=== PATIENT | male | born 1965 | race Caucasian/White ===

== ENCOUNTER 2019-04-08 10:35 | Day surgery (SDC) | payer BC ==
[~2019-04-08] VITALS: Ht 177.8 cm; Wt 145.1 kg
[2019-04-08] MEDS ORDERED: fentaNYL CITRATE 100 MCG/2 ML VL ONE (13:02)
[2019-04-08] MEDS ORDERED: ANGIOMAX 250 MG VIAL IV ONE (13:02)
[2019-04-08] MEDS ORDERED: IODIXANOL 320MG/ML 100ML BTL IV ONE (13:03)
[2019-04-08] MEDS ORDERED: MIDAZOLAM HCL 1MG/1ML-2 ML VIAL ONE (13:03)
[2019-04-08] MEDS ORDERED: SODIUM CHL 0.9% 0 ML ONE (13:03)
[2019-04-08] MEDS ORDERED: LIDOCAINE 2%HCL (LOCAL ANESTH.) INJ 20ML MDV ONE ×3 (13:04→13:32)
[2019-04-08] MEDS ORDERED: IOHEXOL 350 MG/ML 100ML IJ ONE (13:04)
[2019-04-08] MEDS ORDERED: VERAPAMIL 2.5MG/ML INJ 2ML VIAL IV ONE (13:06)
[2019-04-08] MEDS ORDERED: HEPARIN SODIUM (PORCINE) 5000 UNITS/ML 1ML VIAL ONE (13:49)
== END 2019-04-08 15:45 | disposition home or self-care (01) ==
LOC: CATH 10:35
PROVIDERS: ATTEND Internal Medicine
DX: I25.810 Atherosclerosis of coronary artery bypass graft(s) without angina pectoris (principal); I25.2 Old myocardial infarction; E66.9 Obesity, unspecified; G47.30 Sleep apnea, unspecified; I50.9 Heart failure, unspecified; Z95.1 Presence of aortocoronary bypass graft; Z82.49 Family history of ischemic heart disease and other diseases of the circulatory system; Z90.49 Acquired absence of other specified parts of digestive tract; Z68.42 Body mass index [BMI] 45.0-49.9, adult
CPT/HCPCS: 93005; 93455; C1769; C1894; J1644; J2250; J3010; J7030; Q9967; 99152

== ENCOUNTER 2023-12-22 15:26 | Emergency (ER) | payer BC, OTHER ==
[~2023-12-22] VITALS: Ht 177.8 cm; Wt 158.0 kg
[2023-12-22] MEDS: IOHEXOL 350 MG/ML 100ML IJ ONE (18:05)
[2023-12-22] MEDS ORDERED: CYCL-837 PO (19:06)
[2023-12-22 19:47] LABS: Urine Bacteria NONE SEEN /hpf (None Seen); Urine Blood Negative /uL (Negative); Urine Clarity Clear (Clear); Urine Color Yellow (Yellow); Urine Protein, UAD Negative (Negative); Urine Specific Gravity 1.014 (1.001-1.035); Urine Urobilinogen Normal (Negative); Urine WBC 6 /hpf (0 - 3)
[2023-12-22 20:05] VITALS: BP 141/84; PULSE 68; RESP 18; TEMP 98; O2SAT 95
== END 2023-12-22 19:09 | disposition home or self-care (01) ==
LOC: ER 15:26
DX: S33.5XXA Sprain of ligaments of lumbar spine, initial encounter (principal); Z88.2 Allergy status to sulfonamides; X58.XXXA Exposure to other specified factors, initial encounter; Y93.89 Activity, other specified; Y92.89 Other specified places as the place of occurrence of the external cause; Y99.8 Other external cause status
CPT/HCPCS: 71275; 72131; 81001; 99285; Q9967